=== PATIENT | female | born 1955 | race Caucasian/White ===

== ENCOUNTER 2018-01-27 09:23 | Day surgery (SDC) | payer OTHER ==
[2018-01-25 17:28] VITALS: BMI 32.9
--- NOTE | 2018-01-26 16:33 | HP ---
- Patient Scheduled date of Surgery: 01/27/18 Scheduled Surgical Procedure: Phacoemulsification and cataract extraction with PCIOL Affected Eye: Right Chief Complaint (Indication for surgery): Decreased vision affecting ADLs - Ocular History Other Eye History: Other Eye Medications: vigamox - Medical History Illnesses: Hypertension, Diabetes Current Medications: Ambulatory Orders Alprazolam [Xanax] 0.5 mg PO HS 01/25/18 Aspirin [Aspirin EC] 81 mg PO DAILY 01/25/18 Escitalopram Oxalate [Lexapro -] 30 mg PO DAILY 01/25/18 Metformin HCl 850 mg PO DAILY 01/25/18 Metoprolol Succinate [Toprol Xl] 50 mg PO DAILY 01/25/18 Southside-3 Fatty Acids [Southside-3] 1,000 mg PO DAILY 01/25/18 Triamterene/Hydrochlorothiazid [Triamterene-Hctz 37.5-25 mg Cp] 1 each PO DAILY 01/25/18 Turmeric/Turmeric Root Extract [Turmeric 450-50 mg Capsule] 1 each PO DAILY 10/14 Allergies/Adverse Reactions: Allergies Allergy/AdvReac Type Severity Reaction Status Date / Time No Known Allergies Allergy Verified 01/25/18 17:29 Ocular Examination - Best Corrected Visual Acuity Distance: Right eye: 20/50 Distance: Left eye: 20/20 - External/Slit Lamp Examination Abnormalities: none - Intraocular Pressure Intraocular Pressure - Right eye: 13 Intraocular Pressure-Left eye: 13 - Lens Lens: 2+ ns vacuoles , 2+ cortical - Vitreous/Retina Vitreous/Retina: c:d 0.3 m/v/p wnl - Special Examination M - Right eye: +0.75-1.25 x 09 M - Left eye: +3.00-0.50 x 045 K - Right eye: 43.25/44 x 025 K - Left eye: 43.75/44.5 x 120 AL - Right eye: 23.39 AL - Left eye: 23.20 IOL bag: +21.5 s [id number] IOL sulcus: 20.5 MN60AC IOL AC: 17.5 d MTA 4uo - Impression Impression: Cataract Right Eye - Plan Plan: Phacoemulsification and cataract extraction - IOL Right eye Post-hospital care will be provided in office on: 01/28/18
--- NOTE | 2018-01-27 07:27 | HP ---
History & Physical Update - History History: No Change - Physical Physical: No Change - Assessment Assessment: No Change - Plan Plan: No Change (Reviewed Dr. Hsieh's H and P from 01/17/18 no changes)
[~2018-01-27 09:23] MED LIST: ACETAMINOPHEN 325 MG TABLET (FP) PO PRN; CIPROFLOXACIN HCL 0.3% OPHTH 2.5ML BOTTLE OP SCH; FLURBIPROFEN 0.03% OPHTH SOLN 2.5 ML BOTTLE OD SCH; FLURBIPROFEN 0.03% OPHTH SOLN 2.5 ML BOTTLE OP SCH; KETOROLAC TROMETHAMINE 0.5% 5 ML BOTTLE OPTHALMIC OP SCH; PHENYLEPHRINE 2.5% OPHTH SOLN 15 ML BOTTLE OP SCH; TOBRAMYCIN/DEXAMETHASONE OPHTH. OINTMENT 1 TUBE OD ONE; TROPICAMIDE 1% OPHTH SOLN 15 ML BOTTLE OP SCH
[2018-01-27 09:46] VITALS: TEMP 97.8
[2018-01-27] MEDS ORDERED: PHENYLEPHRINE 2.5% OPHTH SOLN 15 ML BOTTLE ONE (09:56)
[2018-01-27] MEDS ORDERED: CIPROFLOXACIN 0.3% EYE DROPS 5 ML BOTTLE ONE (09:56)
[2018-01-27] MEDS ORDERED: FLURBIPROFEN 0.03% OPHTH SOLN 2.5 ML BOTTLE ONE (09:56)
[2018-01-27] MEDS ORDERED: TROPICAMIDE 1% OPHTH SOLN 15 ML BOTTLE ONE (09:56)
[2018-01-27] MEDS ORDERED: FLURBIPROFEN 0.03% OPHTH SOLN 2.5 ML BOTTLE OD ONE ×3 (10:10→10:30)
[2018-01-27] MEDS ORDERED: CIPROFLOXACIN HCL 0.3% OPHTH 2.5ML BOTTLE OD ONE ×3 (10:10→10:30)
[2018-01-27] MEDS ORDERED: PHENYLEPHRINE 2.5% OPHTH SOLN 15 ML BOTTLE OD ONE ×3 (10:10→10:30)
[2018-01-27] MEDS ORDERED: TROPICAMIDE 1% OPHTH SOLN 15 ML BOTTLE OD ONE ×3 (10:10→10:30)
[2018-01-27] MEDS ORDERED: TOBRAMYCIN/DEXAMETHASONE OPHTH. OINTMENT 1 TUBE ONE (10:36)
[2018-01-27] MEDS ORDERED: LIDOCAINE HCL 2% JELLY (5 ML/TUBE) TP ONE (11:58)
[2018-01-27] MEDS ORDERED: MIDAZOLAM HCL 2 MG/2 ML SINGLE DOSE VIAL ONE (11:58)
[2018-01-27] MEDS ORDERED: POVIDONE-IODINE 5% OPHTHALMIC PREP 30 ML SOLUTION OD ONE (12:01)
[2018-01-27] MEDS ORDERED: LIDOCAINE HCL 1% PRESERVATIVE FREE - 30ML VIAL IO ONE (12:09)
[2018-01-27] MEDS ORDERED: BSS (NA/CA/MG/K) BALANCED SALT SOLUTION OPHTH SOLN 15 ML BOTTLE OD ONE (12:09)
[2018-01-27] MEDS ORDERED: CHONDROITIN SU A/HYALUR SOD 1 KIT IO ONE ×2 (12:09)
[2018-01-27] MEDS ORDERED: EPINEPHrine/PF 1 MG/1 ML (1:1,000) AMPULE SQ ONE (12:19)
[2018-01-27] MEDS ORDERED: TOBRAMYCIN/DEXAMETHASONE OPHTH. OINTMENT 1 TUBE OD ONE (12:41)
--- NOTE | 2018-01-27 12:46 | OP ---
Ophthalmology Operative Note Pre-Operative Diagnosis: Cataract Affected Eye: Right Operation: Phacoemulsification and cataract extraction with PCIOL (and LRI) Findings: NS cataract od Post-Operative Diagnosis: Same as Pre-op Technical Services Rep: None Anesthesiologist: Anselmo Vazquez Anesthesia: Topical Specimens Removed: none Estimated blood loss: <1 cc Drains & Tubes with Location: none Operative Report Dictated: Yes
[2018-01-27 13:43] VITALS: BP 103/58; PULSE 64
[2018-01-27] MEDS ORDERED: CHONDROITIN SU A/HYALUR SOD 1 KIT ONE (14:34)
== END 2018-01-27 13:30 | disposition home or self-care (01) ==
LOC: JASU-SURG 09:23
PROVIDERS: ATTEND Ophthalmology
PROC: 08RK3JZ Replacement of Left Lens with Synthetic Substitute, Percutaneous Approach (ICD-10-PCS; principal; 2018-01-27 10:30)
DX: H26.9 Unspecified cataract (principal)
CPT/HCPCS: 82962

== ENCOUNTER 2018-03-03 07:26 | Day surgery (SDC) | payer OTHER ==
[2018-03-02 11:56] VITALS: BMI 32.9
--- NOTE | 2018-03-02 16:51 | HP ---
- Patient Scheduled date of Surgery: 03/03/18 Scheduled Surgical Procedure: Phacoemulsification and cataract extraction with PCIOL Affected Eye: Left Chief Complaint (Indication for surgery): Decreased vision affecting ADLs - Ocular History Other Eye History: Other (none) Eye Medications: vigamox , ilevro Previous Eye Surgery: s/p ce/pciol OD +21.5d sVT0 - Medical History Illnesses: Hypertension, Other (NIDDM) Current Medications: Ambulatory Orders Alprazolam [Xanax] 0.5 mg PO HS 01/25/18 Aspirin [Aspirin EC] 81 mg PO DAILY 01/25/18 Escitalopram Oxalate [Lexapro -] 30 mg PO DAILY 01/25/18 Metformin HCl 850 mg PO DAILY 01/25/18 Metoprolol Succinate [Toprol Xl] 50 mg PO DAILY 01/25/18 Soso-3 Fatty Acids [Soso-3] 1,000 mg PO DAILY 01/25/18 Triamterene/Hydrochlorothiazid [Triamterene-Hctz 37.5-25 mg Cp] 1 each PO DAILY 01/25/18 Turmeric/Turmeric Root Extract [Turmeric 450-50 mg Capsule] 1 each PO DAILY 10/14 Allergies/Adverse Reactions: Allergies Allergy/AdvReac Type Severity Reaction Status Date / Time No Known Allergies Allergy Verified 03/02/18 11:58 Ocular Examination - Best Corrected Visual Acuity Distance: Right eye: 20/25 Distance: Left eye: 20/30 - External/Slit Lamp Examination Abnormalities: none - Intraocular Pressure Intraocular Pressure - Right eye: 15 Intraocular Pressure-Left eye: 13 - Lens Lens: 2+ NS - Vitreous/Retina Vitreous/Retina: c:d 0.3 m/v/p wnl - Special Examination M - Right eye: plano- 0.50 x 110 M - Left eye: +3.00- 0.50 x 045 K - Right eye: 43.5/44 x 090 K - Left eye: 43.75/44.50 x 145 AL - Right eye: 23.39 AL - Left eye: 23.20 IOL bag: +22.0 D [id number] IOL sulcus: +21.0 MN60 AC IOL AC: +18.0 D MTA4uo - Impression Impression: Cataract Left Eye - Plan Plan: Phacoemulsification and cataract extraction - IOL Left eye Post-hospital care will be provided in office on: 03/04/18
--- NOTE | 2018-03-03 07:17 | HP ---
History & Physical Update - History History: No Change - Physical Physical: No Change - Assessment Assessment: No Change - Plan Plan: No Change (Reivewed Dr. Sayda Hsieh's H and P from 02/24/18 no change )
[~2018-03-03 07:26] MED LIST changes: -CIPROFLOXACIN HCL 0.3% OPHTH 2.5ML BOTTLE OP SCH; -FLURBIPROFEN 0.03% OPHTH SOLN 2.5 ML BOTTLE OD SCH; -FLURBIPROFEN 0.03% OPHTH SOLN 2.5 ML BOTTLE OP SCH; -PHENYLEPHRINE 2.5% OPHTH SOLN 15 ML BOTTLE OP SCH; -TOBRAMYCIN/DEXAMETHASONE OPHTH. OINTMENT 1 TUBE OD ONE; +TOBRAMYCIN/DEXAMETHASONE OPHTH. OINTMENT 1 TUBE OS ONE; -TROPICAMIDE 1% OPHTH SOLN 15 ML BOTTLE OP SCH
[2018-03-03] MEDS ORDERED: PHENYLEPHRINE 2.5% OPHTH SOLN 15 ML BOTTLE ONE (07:45)
[2018-03-03] MEDS ORDERED: CIPROFLOXACIN 0.3% EYE DROPS 5 ML BOTTLE ONE (07:45)
[2018-03-03] MEDS ORDERED: TROPICAMIDE 1% OPHTH SOLN 15 ML BOTTLE ONE (07:45)
[2018-03-03] MEDS: PHENYLEPHRINE 2.5% OPHTH SOLN 15 ML BOTTLE OP SCH ×3 (08:00→08:15)
[2018-03-03] MEDS: CIPROFLOXACIN HCL 0.3% OPHTH 2.5ML BOTTLE OP SCH ×3 (08:00→08:15)
[2018-03-03] MEDS: TROPICAMIDE 1% OPHTH SOLN 15 ML BOTTLE OP SCH ×3 (08:00→08:15)
[2018-03-03] MEDS: FLURBIPROFEN 0.03% OPHTH SOLN 2.5 ML BOTTLE ONE ×3 (08:00→08:15)
[2018-03-03 08:08] VITALS: TEMP 97.8
[2018-03-03] MEDS ORDERED: MIDAZOLAM HCL 2 MG/2 ML SINGLE DOSE VIAL ONE (09:32)
[2018-03-03] MEDS ORDERED: LIDOCAINE HCL 2% JELLY (5 ML/TUBE) TP ONE (09:32)
[2018-03-03] MEDS ORDERED: POVIDONE-IODINE 5% OPHTHALMIC PREP 30 ML SOLUTION OS ONE (09:34)
[2018-03-03] MEDS ORDERED: LIDOCAINE HCL 1% PRESERVATIVE FREE - 30ML VIAL IO ONE (09:50)
[2018-03-03] MEDS ORDERED: BSS (NA/CA/MG/K) BALANCED SALT SOLUTION OPHTH SOLN 15 ML BOTTLE OS ONE (09:50)
[2018-03-03] MEDS ORDERED: CHONDROITIN SU A/HYALUR SOD 1 KIT IO ONE ×2 (09:50)
[2018-03-03] MEDS ORDERED: EPINEPHrine/PF 1 MG/1 ML (1:1,000) AMPULE SQ ONE (09:56)
[2018-03-03] MEDS ORDERED: TOBRAMYCIN/DEXAMETHASONE OPHTH. OINTMENT 1 TUBE OS ONE (10:13)
--- NOTE | 2018-03-03 10:19 | OP ---
Ophthalmology Operative Note Pre-Operative Diagnosis: Cataract Affected Eye: Left Operation: Phacoemulsification and cataract extraction with PCIOL (with LRI at 305 and 125 x 35 degreees) Findings: NS cataract Post-Operative Diagnosis: Same as Pre-op Psychologist [employer]: Edna Anesthesiologist: Nikki Jaime MD Anesthesia: Topical Specimens Removed: NS cataract Estimated blood loss: <1 cc
[2018-03-03] MEDS ORDERED: CHONDROITIN SU A/HYALUR SOD 1 KIT ONE (10:27)
[2018-03-03 11:10] VITALS: BP 126/70; PULSE 62
--- NOTE | 2018-03-03 11:17 | OP ---
DATE OF OPERATION: DATE DICTATION: 03/03/2018 PREOPERATIVE DIAGNOSIS: Nuclear sclerotic cataract, left eye. POSTOPERATIVE DIAGNOSIS: Nuclear sclerotic cataract, left eye. PROCEDURE: Phacoemulsification and cataract extraction with insertion of posterior chamber intraocular lens, left eye and limbal relaxing incisions, left eye. SURGEON: Velma Chavira M.D. CRYPTOGRAPHIC CLERK: None. ANESTHESIA: Topical. ANESTHESIOLOGIST: Nikki Jaime MD OPERATIVE PROCEDURE: The 90-degree meridian and the 180-degree meridian were marked with the sterile marking pen with the patient sitting upright.The patient received lidocaine 2% gel in the holding area and then was brought to the operating room and prepped and draped in the usual sterile fashion as to expose only the left eye. Ophthalmic Betadine was instilled into the inferior fornix. The lashes were taped out of the surgical field. An eyelid speculum was placed into the left eye. The marking utensils were used to karen out the 125-degree meridian, as well as the 305- degree meridian and 17.5 degrees on either side was then marked on the corneal surface at the limbus and a gumaro blade set to 600 microns was used to create limbal relaxing incisions over 35 degrees surrounding the 305 karen and the 125 karen. A paracentesis was then made in inferior clear cornea at the limbus and 0.5 mL of non-preserved lidocaine 1% was injected into the anterior chamber. Viscoelastic material was instilled into the anterior chamber by the paracentesis. A 2.4 mm keratome was then used to create the main incision in temporal clear cornea at the limbus. A continuous curvilinear capsulorrhexis was performed using a cystotome and Utrata forceps. Hydrodissection of the lens cortex was performed using BSS on a cannula until the nucleus was noted to be freely rotating. The phacoemulsification tip was then inserted via the main wound and used to sculpt 2 perpendicular grooves in the lens nucleus. The nucleus was cracked into 4 quadrants. Each quadrant was lifted out of the capsule into the iris plane and individually phacoemulsified. The remaining cortical material was then aspirated using the irrigation and aspiration port. The capsular bag was inflated using Provisc and a preloaded AcrySof lens model [id number] power +22.0 diopters for very slight myopia was injected into the capsular bag. It was centered using a Sinskey hook. The residual Viscoelastic material was removed from the anterior chamber using irrigation and aspiration. The wound edges were hydrated using BSS. The wound was tested for leakage. It was found to be watertight. Tobradex ointment was placed in the eye. The speculum was removed from the eye and the eyelid was closed. A sterile and shield were placed over the eye and the patient was transferred to the recovery room in stable condition, told to follow up in 1 day. VELMA CHAVIRA M.D. [id number]
== END 2018-03-03 11:05 | disposition home or self-care (01) ==
LOC: JASU-SURG 07:26
PROVIDERS: ATTEND Ophthalmology
PROC: 08RK3JZ Replacement of Left Lens with Synthetic Substitute, Percutaneous Approach (ICD-10-PCS; principal; 2018-03-03 09:30)
DX: H25.12 Age-related nuclear cataract, left eye (principal)
CPT/HCPCS: 82962